=== PATIENT | female | born 1970 | race Caucasian/White ===

== ENCOUNTER 2021-03-20 12:27 | Day surgery (SDC) | payer SELFPAY ==
[2021-03-20 13:10] VITALS: BMI 28.2
[2021-03-20] MEDS ORDERED: ACETAMINOPHEN 325 MG TABLET (FP) PO PRN (13:22)
[2021-03-20] MEDS ORDERED: LACTATED RINGERS SOLUTION 1,000 ML/1,000 ML INFUS.BAG IV STA (13:25)
[2021-03-20] MEDS ORDERED: LIDOCAINE HCL 1%, 10 MG/ML (20ML VIAL) ONE (13:28)
[2021-03-20] MEDS ORDERED: EPINEPHrine/PF 1 MG/1 ML (1:1,000) AMPULE ONE (13:28)
[2021-03-20] MEDS ORDERED: PROPOFOL 20 ML ONE (13:39)
[2021-03-20] MEDS ORDERED: MIDAZOLAM HCL 2 MG/2 ML SINGLE DOSE VIAL ONE (13:39)
[2021-03-20] MEDS ORDERED: LIDOCAINE HCL/PF 2% SDV 5ML VIAL ONE (13:39)
[2021-03-20] MEDS ORDERED: ceFAZolin SODIUM 1 GM VIAL ONE (13:57)
[2021-03-20] MEDS ORDERED: DEXAMETHASONE SOD PHOSPHATE 4 MG/1 ML VIAL ONE (14:20)
[2021-03-20] MEDS ORDERED: ONDANSETRON 4 MG/2 ML VIAL ONE (14:20)
[2021-03-20] MEDS ORDERED: CEFAZOLIN 1 GM/D5W 1 GM/50 ML BAG IVPB SCH (15:00)
[2021-03-20] MEDS ORDERED: GUM MASTIC/STORAX/MSAL/ALCOHOL 1 DRP DROPSBTL MC ONE ×2 (15:16→16:21)
[2021-03-20] MEDS ORDERED: oxyCODONE HCL 5 MG TABLET PO PRN (15:42)
[2021-03-20] MEDS ORDERED: NEOSTIGMINE METHYLSULFATE 0.5 MG/1 ML - 10 ML MDV ONE (15:57)
[2021-03-20] MEDS ORDERED: GLYCOPYRROLATE 0.2 MG/1 ML VIAL ONE (15:57)
[2021-03-20] MEDS ORDERED: HYDROmorphone *PCA* 10MG/50ML DISP.SYRIN ONE (16:43)
[2021-03-20] MEDS ORDERED: PCA PUMP NR ONE (17:06)
[2021-03-20] MEDS: HYDROmorphone *PCA* 10MG/50ML DISP.SYRIN PCA SCH ×2 (17:10→18:00)
[2021-03-20] MEDS: CEFAZOLIN 1 GM/D5W 1 GM/50 ML BAG IVPB SCH (19:34)
[2021-03-20] MEDS ORDERED: MAGNESIUM OXIDE 400 MG TABLET (FP) PO SCH (22:00)
[2021-03-20] MEDS ORDERED: PATIENT'S OWN MEDICATION (NON-FORMULARY) (Magnesium Oxide [Magnesium] 500 MG Capsule) PO SCH (22:00)
[2021-03-20] MEDS ORDERED: ESCITALOPRAM OXALATE 20 MG TABLET PO SCH (22:00)
[2021-03-20] MEDS ORDERED: CHOLECALCIFEROL (VIT D3) 1,000 UNIT (25 MCG) TABLET PO SCH (22:00)
[2021-03-21] MEDS: CEFAZOLIN 1 GM/D5W 1 GM/50 ML BAG IVPB SCH ×3 (01:19→14:04)
[2021-03-21] MEDS ORDERED: PCA PUMP NR ONE ×2 (07:06→13:57)
[2021-03-21] MEDS: LACTATED RINGERS SOLUTION 1,000 ML IV SCH ×2 (08:03→14:47)
[2021-03-21] MEDS ORDERED: oxyCODONE HCL 5 MG TABLET PO PRN ×2 (08:17)
[2021-03-21] MEDS ORDERED: diazePAM 5 MG TABLET PO PRN (08:18)
[2021-03-21] MEDS: ONDANSETRON 4 MG/2 ML VIAL IVPUSH PRN ×2 (09:30→14:04)
[2021-03-21] MEDS ORDERED: ENOXAPARIN NA (PORCINE) 40 MG/0.4 ML DISP.SYRIN SQ SCH (10:00)
[2021-03-21] MEDS ORDERED: MULTIVITAMINS (DAILY MVI) TABLET (FP) PO SCH (10:00)
[2021-03-21 14:48] VITALS: BP 134/90; PULSE 90; TEMP 98.2
== END 2021-03-21 15:42 | disposition home or self-care (01) ==
LOC: FASUSAT 12:27 → FM/S 18:56 → FASUSAT 03-21 15:42
PROVIDERS: ATTEND Surgery Plastic and Reconstructive Surgery
CPT/HCPCS: 94760